=== PATIENT | female | born 1935 | race Asian ===

== ENCOUNTER 2017-12-14 18:05 | Inpatient (IN) | payer OTHER, MEDICAID ==
[~2017-12-14] VITALS: Ht 144.8 cm; Wt 44.4 kg
[~2017-12-14 18:05] MED LIST: AMLODIPINE BESY10 M1 PO; AMLODIPINE5 M1; ASPIR 8181 MG; ASPIR 8181 MG PO; ATORVASTATIN CA10 M1 PO; CARVEDILOL25 M1 PO; CORE25 PO; FER300 PO; JANUVIA100 M1; JANUVIA100 M1 PO; LIPI10; NAP250 PO; RENVELA800 M1 PO; VITAMIN D32000 I2; ZOC20 PO; ZYL100 PO
[2017-12-14 18:23] VITALS: Ht 144.8 cm; Wt 44.4 kg
[2017-12-14 19:43] LABS: BASOPHIL % 1.7 % (0-2)
[2017-12-14 19:44] LABS: PLATELET COUNT 129 x10^3mcL (130-400); RED CELL DISTRIBUTION WIDTH 18.3 % (11.5-14.5)
[2017-12-14 19:47] LABS: CALCIUM 9.1 mg/dL (8.5-10.1); CARBON DIOXIDE 25.9 mmol/L (21-32); CHLORIDE SERUM 92 mmol/L (98-107); GLUCOSE SERUM 228 mg/dL (74-106); SODIUM SERUM 128 mmol/L (136-145)
[2017-12-14 19:53] LABS: POTASSIUM SERUM 5.7 mmol/L (3.5-5.1)
[2017-12-14 19:54] LABS: CREATININE SERUM 10.1 mg/dL (0.6-1.0)
[2017-12-14 20:40] LABS: MAGNESIUM 2.5 mg/dL (1.8-2.4); PHOSPHOROUS 6.3 mg/dL (2.5-4.9)
[2017-12-14 20:45] LABS: CHOLESTEROL/HDL RATIO 1.8
[2017-12-14 20:47] LABS: T3 TOTAL 0.61 ng/mL
[2017-12-14 21:03] LABS: FREE T4 1.03 ng/dL (0.76-1.46); FREE THYROXINE INDEX 1.9 ug/dL (1.4-4.5); T4(THYROXINE) 5.2 ug/dL (4.7-13.3)
[2017-12-14 21:51] VITALS: BP 222/77
[2017-12-15] VITALS (7 sets, daily range): BP systolic 135–230; BP diastolic 46–84
[2017-12-15 07:12] LABS: BASOPHIL % 1.5 % (0-2); PLATELET COUNT 146 x10^3mcL (130-400)
[2017-12-15 07:20] LABS: CALCIUM 9.5 mg/dL (8.5-10.1); CARBON DIOXIDE 29.3 mmol/L (21-32); CHLORIDE SERUM 95 mmol/L (98-107); GLUCOSE SERUM 95 mg/dL (74-106); PHOSPHOROUS 4.3 mg/dL (2.5-4.9); POTASSIUM SERUM 3.3 mmol/L (3.5-5.1); SODIUM SERUM 135 mmol/L (136-145)
[2017-12-15 07:21] LABS: RED CELL DISTRIBUTION WIDTH 17.5 % (11.5-14.5)
[2017-12-15 07:25] LABS: CREATININE SERUM 5.3 mg/dL (0.6-1.0)
[2017-12-15] MEDS ORDERED: PANTOPRAZOLE SO40 M1 PO (10:13)
[2017-12-15] MEDS ORDERED: CATAPRES0.1 MG PO (10:16)
[2017-12-15] MEDS ORDERED: HYDRALAZINE HCL25 MG PO (10:16)
[2017-12-15] MEDS ORDERED: AMLODIPINE BESY10 M2 PO (10:17)
[2017-12-15] MEDS ORDERED: LIPI10 PO (10:18)
[2017-12-15] MEDS ORDERED: ENALAPRIL MALEA20 MG PO (10:18)
[2017-12-15] MEDS ORDERED: BAYER ASPIRIN R81 MG PO (10:19)
[2017-12-15] MEDS ORDERED: RENVELA800 M1 PO (14:17)
== END 2017-12-15 17:04 | disposition home or self-care (01) | DRG 682 ==
LOC: ED 18:05 → DU 20:01
PROVIDERS: Emergency Medicine; General Practice
DX: I12.0 Hypertensive chronic kidney disease with stage 5 chronic kidney disease or end stage renal disease (principal); N18.6 End stage renal disease; N17.0 Acute kidney failure with tubular necrosis; E87.1 Hypo-osmolality and hyponatremia; E11.22 Type 2 diabetes mellitus with diabetic chronic kidney disease; E87.5 Hyperkalemia; M10.9 Gout, unspecified; E83.41 Hypermagnesemia; E83.39 Other disorders of phosphorus metabolism; Z99.2 Dependence on renal dialysis; Z68.22 Body mass index [BMI] 22.0-22.9, adult
CPT/HCPCS: 82962; 83880; 84439; J3490; Q0092